=== PATIENT | male | born 1935 | race Caucasian/White ===

== ENCOUNTER 2018-01-02 07:14 | Emergency (ER) | payer MEDICARE, OTHER ==
[2018-01-02 07:37] VITALS: BP 138/100
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
== END 2018-01-02 08:57 | disposition short-term general hospital (02) ==
LOC: UCEAST 07:14
DX: K92.1 Melena (principal); R00.0 Tachycardia, unspecified; Z88.2 Allergy status to sulfonamides; I10 Essential (primary) hypertension; K64.9 Unspecified hemorrhoids; Z87.891 Personal history of nicotine dependence
CPT/HCPCS: 99213; G0463

== ENCOUNTER 2018-01-02 09:18 | Inpatient (IN) | payer MEDICARE, OTHER ==
[2018-01-02] MEDS ORDERED: NS 0.9% 1000 ML* 1,000 ML IV ONE (09:56)
[2018-01-02] MEDS ORDERED: Pantoprazole IV* 40 MG IV ONE (09:56)
[2018-01-02 10:24] LABS: Urine Appearance Clear; Urine Blood Negative (Negative); Urine Color Yellow; Urine Ketones Trace (Negative); Urine Protein Negative (Negative); Urine Urobilinogen Negative (Negative)
--- NOTE | 2018-01-02 10:29 | RAD ---
INDICATION: Diarrhea COMPARISON: None TECHNIQUE: Erect and supine views of the abdomen are submitted. FINDINGS: Bones: There are no acute bony findings. There is spondylitic change with a scoliotic deformity. Soft tissues: The soft tissues appear normal. The psoas margins are sharp. Bowel gas pattern: Normal Calcifications: There calcifications of the iliac vessels. Other: None IMPRESSION: NO ACUTE DIAGNOSTIC FINDINGS.
[2018-01-02 10:48] LABS: ABS Basophils 0.1 10^3/ul (0-0.2); ABS Eosinophils 0 10^3/ul (0-0.6); ABS Lymphocytes 1.1 10^3/ul (1.0-4.8); ABS Monocytes 0.6 10^3/ul (0-0.8); ABS Nucleated RBC 0 10^3/ul; Eosinophil % 0.2 % (0-6); Hematocrit 34 % (42-52); Hemoglobin 11.6 g/dl (14.0-18.0); Lymphocyte % 12.1 % (25-47); Mean Corpuscular HGB Conc 34 g/dl (31-36); Mean Corpuscular Hemoglobin 31 pg (27-31); Mean Corpuscular Volume 91 fL (80-94); Mean Platelet Volume 11 um3 (7.4-10.4); Nucleated Red Blood Cells % 0; Platelet Count 217 10^3/ul (150-450); Red Blood Count 3.72 10^6/ul (4.0-5.4); Red Cell Distribution Width 13 % (10.5-15); White Blood Count 8.7 10^3/ul (3.5-10.8)
[2018-01-02 10:59] LABS: INR 1.06 (0.77-1.02)
[2018-01-02 11:00] LABS: EGFR Non-African American 56.2 (>60)
[2018-01-02] MEDS ORDERED: Ondansetron INJ* 2 MG/ML VIAL IV PRN (14:49)
[2018-01-02] MEDS ORDERED: Acetaminophen TAB* 325 MG PO PRN (14:49)
[2018-01-02] MEDS: NS 0.9% 1000 ML* 1,000 ML IV SCH (16:15)
--- NOTE | 2018-01-02 18:28 | CONS ---
CC: Dr. Herr * CONSULTATION REPORT: DATE OF CONSULTATION: 01/02/18 REQUESTING PHYSICIAN: Celia Alegria NP. PRIMARY CARE PHYSICIAN: Dr. Herr INDICATION: Bloody diarrhea. NARRATIVE: Mr. Espinoza is a very pleasant 82-year-old gentleman who looks much younger than his stated age, with a history of hemorrhoids and hypertension , admitted with bloody diarrhea. The patient states he was diagnosed with the flu approximately 3 to 4 weeks ago. He did take Tamiflu. Approximately a week ago he developed loose stools. He states that he normally develops loose stools a couple of months out of every year. However, this episode seemed to be more intense. He was having between 6 and 8 bowel movements per day until this morning when the stools became bloody. They were bright red blood. He denies any pain. He denies any pushing. No nausea. No vomiting. No fevers or chills. No sick contacts. He does take an aspirin a day; however, he stopped taking that today. Denies any other nonsteroidals. He had never had bloody diarrhea like this before. He does tell me that he had a flexible sigmoidoscopy at least 20 years ago. He has never had a colonoscopy. Flex sig showed severe diverticulosis. Denies any new medications other than the Tamiflu. No unintentional weight loss. He does have intentional weight loss as this was a new year's resolution. No family history of colorectal cancer. PAST MEDICAL HISTORY: Significant for hypertension and hemorrhoids. PAST SURGICAL HISTORY: Include a TURP, inguinal hernia repair. ALLERGIES: SULFA and TETRACYCLINE. SOCIAL HISTORY: He drinks 1 alcoholic beverage per day; however, he has really cut back on this and really says that he does not drink much alcohol at all anymore. He quit smoking many years ago. PHYSICAL EXAMINATION: Temperature is 98.1, blood pressure is 100/61, pulse is 94. General: Well appearing male, who appears younger than stated age. Alert, oriented, pleasant, fluent. HEENT: Mucous membranes are moist without lesions , ulcers, or exudate. Neck is supple. Trachea is midline. Head is normocephalic, atraumatic. Heart: Regular rate and rhythm. Lungs: Clear to auscultation. Abdomen: Positive bowel sounds, soft, nontender, nondistended. No hepatosplenomegaly, masses, rebound, or guarding. Skin is warm and dry. LABORATORY DATA: Of note, white count is 8.7, hemoglobin is 11.6, and platelets are 217. BUN 22, creatinine 1.23. CRP is 11.79. ASSESSMENT AND PLAN: This is a pleasant 82-year-old gentleman who presents with diarrhea for the past week to 10 days that turned bloody this morning. It is painless. Possible etiologies would include a diverticular bleed, could be irritable bowel syndrome, especially post infectious from his flu, with hemorrhoids or diverticulosis. I doubt ischemic colitis without pain, I doubt IBD, such as Crohn's or ulcerative colitis. He could have another infection. He was already tested for C. diff, this is negative, and his lactoferrin is negative. He did have abdominal x-ray that was within normal limits. At this point, I would like to perform a colonoscopy. He is having 6 to 8 loose stools per day, I do not think we need to perform a full prep, but I would like to give him 1 L of GoLYTELY tonight and another liter tomorrow and plan for his colonoscopy tomorrow. [id number]/[facility] #: [id number] MTDD
[2018-01-02 19:54] LABS: Hematocrit 30 % (42-52); Hemoglobin 10.2 g/dl (14.0-18.0)
[2018-01-02] MEDS: Pantoprazole IV* 40 MG IV SCH (21:10)
[2018-01-02] MEDS: PEG 3000 GI LAVAGE* 1 GALLON PO SCH (21:44)
--- NOTE | 2018-01-02 22:55 | HP ---
CC: Dr. Herr * [facility] MEDICINE HISTORY AND PHYSICAL: DATE OF ADMISSION: 01/02/18 PRIMARY CARE PHYSICIAN: Dr. Herr. ATTENDING PHYSICIAN: Dr. Aicha Garcia * (dictation provided by Celia Alegria NP ). CHIEF COMPLAINT: Bloody diarrhea. HISTORY OF PRESENT ILLNESS: Mr. Espinoza is an 82-year-old male with a past medical history of diverticulosis, hypertension, hyperlipidemia, and CKD stage 3 , who presented to the hospital today with concern for bloody diarrhea. Mr. Espinoza states that he was treated for the flu in mid December, for that he completed a course of Tamiflu. His diarrhea started on about 12/26/17 and has been increasing in frequency and amount since then. He has a history of diverticulosis diagnosed probably 15 years ago on a flexible sigmoidoscopy. Since then, he states he has been having diarrhea intermittently, but never associated with bleeding. However, last night, he noted that there was a significant amount of blood in the toilet after he had a bowel movement. Therefore, he came to the emergency room for evaluation. He denies any lightheadedness or dizziness. He further denies any palpitations, chest pain, shortness of breath, nausea or vomiting. He has no abdominal pain except for mild intermittent cramping associated with diarrhea. He does endorse a 20- pound weight loss, but states it was intentional. In the emergency room, Mr. Espinoza had hemoglobin, which was 11.6. Last hemoglobin on 06/02/16 was 14.1. The remainder of his labs were unremarkable. His C. difficile testing was negative. His stool guaiac was positive. He had an abdominal x-ray that showed no acute abnormality. His vital signs are stable. He is not tachycardic or hypotensive. PAST MEDICAL HISTORY: 1. Diverticulosis diagnosed about 15 years ago on flexible sigmoidoscopy. 2. Hypertension. 3. Hyperlipidemia. 4. Dupuytren's contractures. 5. CKD stage 3. PAST SURGICAL HISTORY: 1. Dupuytren's contracture release 2016. 2. TURP 2014. 3. Hernia repair in the . MEDICATIONS: Are: 1. Vitamin C 500 mg p.o. daily. 2. Vitamin B complex 1 tab p.o. daily. 3. Multivitamin with mineral 1 tab p.o. daily. 4. Cholecalciferol 1000 units p.o. daily. 5. Aspirin 81 mg p.o. daily. 6. Losartan hydrochlorothiazide 50/12.5 half a tab p.o. daily. 7. Atorvastatin 40 mg p.o. daily. ALLERGIES: To SULFA and TETRACYCLINE. FAMILY HISTORY: The patient reports his mom had CVA and at age 74. Father 's history is unknown. SOCIAL HISTORY: The patient is a former smoker. He drinks about 1 drink per day. No report of drug use. He is a retired long. He lives with his , Ashly, who would be his healthcare proxy. REVIEW OF SYSTEMS: A 14-point review of systems was completed with Mr. Espinoza and all those not mentioned above were negative. PHYSICAL EXAMINATION GENERAL: Mr. Espinoza is lying in the bed with his at the bedside. He is in no acute distress. VITAL SIGNS: Temperature 98.3, pulse rate 76, respiratory rate 16, O2 saturation 97% on room air, blood pressure 112/55. LUNGS: Clear to auscultation bilaterally. No accessory muscle use and good aeration. HEART: S1, S2. There is a faint systolic murmur near the sternal border. Rhythm is regular. ABDOMEN: The abdomen is soft. The patient has no tenderness on palpation. Bowel sounds are positive. EXTREMITIES: No cyanosis or edema. NEUROLOGIC: He is alert. He is oriented x3. He moves his lower extremities equally. There is no facial asymmetry or focal weakness. Extraocular movements are intact. SKIN: Intact. DIAGNOSTIC STUDIES/LAB DATA: WBC 8.7, hemoglobin 11.6, hematocrit 34, platelet count 217. INR 1.06. Sodium 136, potassium 3.6, chloride 106, serum bicarbonate 23, BUN 22, creatinine 1.23, glucose 130. CRP 11.79. ASSESSMENT: Mr. Espinoza is an 82-year-old male with a past medical history of diverticulosis and chronic intermittent diarrhea as well as hypertension, hyperlipidemia, and chronic kidney disease stage 3, who presented to the hospital today with concern for bloody diarrhea. Our plans are for observation in the hospital for the followin. Bloody diarrhea: This may be secondary to his longstanding history of diverticulosis. He is slightly anemic today with a hemoglobin of 11. We will be repeating hemoglobin later this evening and in the morning. We will be providing Protonix b.i.d. He will have IV fluids. He will be seen in consultation by Dr. Garcia from Gastroenterology regarding possible plan for colonoscopy inpatient. He will have a clear diet. 2. Hypertension. Plan to hold losartan and hydrochlorothiazide in the setting of acute bleed. 3. Hyperlipidemia. Plan to hold atorvastatin in the event of acute illness. 4. History of chronic kidney disease stage 3, at baseline. Monitor. 5. Code status. Full code. 6. DVT prophylaxis with SCDs. TIME SPENT: Approximately 60 minutes were spent on admission of this patient; more than half time spent with the patient at the bedside reviewing the events leading up to this hospitalization, performing the physical examination, reviewing my plan of care. CELIA ALEGRIA, JOHN [id number]/[facility] #: [id number] YOLANDA
[2018-01-02 23:41] LABS: Hematocrit 26 % (42-52); Hemoglobin 8.8 g/dl (14.0-18.0)
[2018-01-03] MEDS: NS 0.9% 1000 ML* 1,000 ML IV SCH ×2 (02:28→13:05)
[2018-01-03 06:25] LABS: Hematocrit 24 % (42-52); Hemoglobin 8.3 g/dl (14.0-18.0)
[2018-01-03] MEDS: Pantoprazole IV* 40 MG IV SCH (08:19)
[2018-01-03] MEDS: PEG 3000 GI LAVAGE* 1 GALLON PO SCH (08:25)
--- NOTE | 2018-01-03 10:26 | PN ---
Subjective Date of Service: 01/03/18 Interval History: Mr. Espinoza is seen immediately after his colonoscopy. He reports feeling ok though a little "out of it." He denies abdominal pain, chest pain, or SOB. Endoscopy reports that he had significant bleeding, with concern for bleeding higher up and therefore will return for EGD. Objective Active Medications: Acetaminophen (Tylenol Tab*) 650 mg PO Q6H PRN Sodium Chloride (Ns 0.9% 1000 Ml*) 1,000 mls @ 100 mls/hr IV PER RATE TORRI Ondansetron HCl (Zofran Inj*) 4 mg IV Q6H PRN Pantoprazole Sodium (Protonix Iv*) 40 mg IV BID TORRI Vital Signs: Temp Pulse Resp BP Pulse Ox 97.9 F 69 18 100/51 96 01/03/18 08:12 01/03/18 08:12 01/03/18 08:12 01/03/18 08:12 01/03/18 08:12 Oxygen Devices in Use Now: None Appearance: Male lying in bed in NAD Eyes: No Scleral Icterus Ears/Nose/Mouth/Throat: Mucous Membranes Moist Neck: Trachea Midline Respiratory: Symmetrical Chest Expansion and Respiratory Effort, Clear to Auscultation Cardiovascular: NL Sounds; No Murmurs; No JVD, No Edema Abdominal: NL Sounds; No Tenderness; No Distention Lymphatic: No Cervical Adenopathy Extremities: No Edema Skin: No Rash or Ulcers Neurological: Alert and Oriented x 3, NL Muscle Strength and Tone Nutrition: Taking PO's Result Diagrams: 01/03/18 13:49 01/02/18 10:24 Assess/Plan/Problems-Billing Assessment: Mr. Espinoza is an 82 yo M with a PMH of diverticulosis who was admitted on 01/02 with bright red blood per rectum and suspected lower GI bleed. - Patient Problems (1) Lower GI bleed Comment: - Hgb fell to 7.9 and patient is reported to still have significant bleeding. - Patient not tachycardic, SBP 100 off home meds. - Plan for 2 units PRBC now. - Appreciate GI consult, plan for colonoscopy today. - Hold asa. (2) Hypertension Comment: - SBP 100s. - Continue to hold losartan/hctz. (3) Hyperlipidemia Comment: - Hold atorvastatin while on clear liquid diet. (4) DVT prophylaxis Comment: - SCDs only. (5) Full code status Comment: Status and Disposition: Switch to inpatient.
[2018-01-03] MEDS ORDERED: Midazolam* 1 MG/ML 10 ML VIAL (10 MG) ONE ×2 (11:27→16:05)
[2018-01-03] MEDS ORDERED: fentaNYL* 50 MCG/ML 2 ML VIAL (100 MCG VIAL) ONE ×2 (11:27→16:05)
[2018-01-03 14:03] LABS: Hematocrit 23 % (42-52); Hemoglobin 7.9 g/dl (14.0-18.0)
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
[2018-01-03] MEDS: Pantoprazole IV* 80 MG in NS 0.9% 250 ML* 250 ML IVPB SCH (18:38)
[2018-01-04] MEDS: Pantoprazole IV* 80 MG in NS 0.9% 250 ML* 250 ML IVPB SCH ×2 (06:15→09:37)
[2018-01-04 06:33] LABS: Hematocrit 28 % (42-52); Hemoglobin 9.7 g/dl (14.0-18.0)
--- NOTE | 2018-01-04 08:47 | PN ---
Subjective Date of Service: 01/04/18 Interval History: Mr. Espinoza reports feeling quite well this morning and is eager for discharge. Objective Active Medications: Acetaminophen (Tylenol Tab*) 650 mg PO Q6H PRN Pantoprazole Sodium 80 mg/ (Sodium Chloride) 250 mls @ 25 mls/hr IVPB Q10H TORRI Pantoprazole Sodium 80 mg/ (Sodium Chloride) 250 mls @ 25 mls/hr IVPB Q10H TORRI Ondansetron HCl (Zofran Inj*) 4 mg IV Q6H PRN Vital Signs: Temp Pulse Resp BP Pulse Ox 98.3 F 62 15 117/57 95 01/04/18 07:32 01/04/18 07:32 01/04/18 08:00 01/04/18 07:32 01/04/18 07:32 Oxygen Devices in Use Now: None Appearance: Male lying in bed in NAD Eyes: No Scleral Icterus Ears/Nose/Mouth/Throat: NL Teeth, Lips, Gums Neck: NL Appearance and Movements; NL JVP Respiratory: Symmetrical Chest Expansion and Respiratory Effort, Clear to Auscultation Cardiovascular: NL Sounds; No Murmurs; No JVD, No Edema Abdominal: NL Sounds; No Tenderness; No Distention Lymphatic: No Cervical Adenopathy Extremities: No Edema Skin: No Rash or Ulcers Neurological: Alert and Oriented x 3, NL Muscle Strength and Tone Nutrition: Taking PO's Result Diagrams: 01/04/18 05:41 01/02/18 10:24 Additional Lab and Data: . Assess/Plan/Problems-Billing Assessment: Mr. Espinoza is an 82 yo M with a PMH of diverticulosis who was admitted on 01/02 with bright red blood per rectum and GI bleed. - Patient Problems (1) Lower GI bleed Comment: - Hgb responded appropriately to 2 units PRBC, now 9.7. - Upper and lower endoscopy found no site of bleeding, only gastritis. Likely secondary to aspirin and ibuprofen. - Hold asa and ibuprofen. - Start omeprazole BID. - Follow up GI in 4-6 weeks. (2) Hypertension Comment: - SBP 100s. - Resume losartan/hctz. (3) Hyperlipidemia Comment: - Hold atorvastatin while on clear liquid diet. (4) DVT prophylaxis Comment: - SCDs only. (5) Full code status Comment: Status and Disposition: Inpatient. Discharge to home.
--- NOTE | 2018-01-04 11:22 | PRO ---
DATE: 01/03/18 - ROOM #420 REFERRING PHYSICIAN: Tanmay Herr DO* PROCEDURE: Colonoscopy and ileoscopy INDICATION: This is an 82-year-old man, began passing blood profusely yesterday morning. He says that about 10 days ago he began having a diarrhea episode that was not necessarily different from previous bouts of this, that have extended over 20 or more years. Ten days ago he did not have any nausea, vomiting, or fever, but just repetitive loose stools. It became a little more violent 4 days ago. He did not, however, see blood until this morning. He has never had bleeding before. When diarrhea became a major issue, 18 or 20 years ago, while living in [place], [place], he had a sigmoidoscopy and barium enema that showed extensive diverticulosis. He moved to [place] in 2015. He has never had a colonoscopy. Last night he was given half prep. His hemoglobin fell from 11.6 to 8.2. His BUN was 23, unchanged from a single value about a year ago. ENDOSCOPIST: Dr. Stewart. MEDICATIONS: Midazolam 7, fentanyl 50. FINDINGS: He is a healthy-appearing older man, in no distress. His abdomen is soft and nontender. Rectal is normal. Initial views showed extensive bloody secretions. They are dark red and granular. The scope advances into the sigmoid where there is 3 to 4 + diverticulosis and a little of scarring and restriction, but the scope passes easily and there are still diverticula in ascending and distal transverse. The cecum was reached. There were bloody secretions throughout. There was no fresh bleeding. A single 5 to 6 mm polyp was seen in the descending and left given the acute illness now. Entering the ileum, at about 25 cm there were small spatters of bloody appearing secretions. Coming back from the upper most insertion (30 cm of ileum ) no acute bleeding was seen. Rectal retroflexion was normal. IMPRESSION: 1. Left colonic diverticulosis - extensive, with no acute bleeding seen at this moment. 2. Gastrointestinal bleed - question of an upper source is raised and upper endoscopy will be arranged later in the day. [id number]/[facility] #: [id number] MTDD
[2018-01-04 12:26] VITALS: BP 109/61
--- NOTE | 2018-01-04 13:59 | PRO ---
DATE: 01/03/18 - ROOM #420 REFERRING PHYSICIAN: Tanmay Herr DO * PROCEDURE: Upper gastrointestinal endoscopy through third portion of duodenum INDICATION: An 82-year-old man who was admitted with a GI bleed. It was profuse and his hemoglobin fell from the mid 11's on arrival to 8.2. Colonoscopy showed lots of blood throughout the entire colon and there seemed to be strands of blood particles in the ileum up as far as the exam could proceed to 25 cm. He does take baby aspirin for many years. He has not had overt peptic complaints. ENDOSCOPIST: Dr. Castro. MEDICATIONS: Midazolam 6.5, fentanyl 50. FINDINGS: This is a healthy-appearing older man, appearing younger than stated age. His abdomen is soft and nontender. EGD: Esophagus - easily entered. The mucosa is normal near the upper, mid and lower esophagus with EG junction at 37 and then a minimal ring and a medium sized hiatal hernia. There are no active erosions and no Plata's change. Stomach - normal mucosa in the cardia, fundus and proximal body. The distal body is also normal. In the antrum, especially in the prepyloric area, there is a considerable amount of erythema and small erosions, but no ulcers. The area did open up completely and no ulcer was seen. The pylorus was patent. Duodenum - the bulb had considerable Arcadio's hypertrophy, but no erosions or exudate. There is erythema on the Arcadio's glands, but again no erosions. The second through fourth portions of the duodenum were normal. IMPRESSION: 1. Arcadio's gland hypertrophy. 2. Medium sized hiatal hernia. 3. Mild antral gastritis consistent with aspirin effect. 4. Gastrointestinal bleed - this exam points back towards the diverticulosis as the source. [id number]/[facility] #: [id number] [facility]
[2018-01-04] MEDS ORDERED: Pantoprazole IV* 80 MG in NS 0.9% 250 ML* 250 ML IVPB SCH (16:00)
--- NOTE | 2018-01-04 22:27 | DS ---
CC: Dr. Herr * [facility] MEDICINE DISCHARGE SUMMARY: DATE OF ADMISSION: 01/02/18 DATE OF DISCHARGE: 01/04/18 PRIMARY CARE PROVIDER: Dr. Herr. ATTENDING PHYSICIAN: Dr. Paul Ojeda * (dictation provided by Celia Alegria NP). PRIMARY DIAGNOSES: 1. Gastrointestinal bleed, unknown source, but with known gastritis. 2. Anemia. SECONDARY DIAGNOSES: 1. Diverticulosis. 2. Hypertension. 3. Hyperlipidemia. 4. Dupuytren's contractures. 5. Chronic kidney disease stage 3. MEDICATIONS AT THE TIME OF DISCHARGE: The patient has been instructed to hold aspirin and ibuprofen. Remainder of the medication list includes: 1. Omeprazole 20 mg p.o. b.i.d. (new medication). 2. Vitamin C 500 mg p.o. daily. 3. Vitamin B complex 1 tab p.o. daily. 4. Multivitamin mineral 1 tab p.o. daily. 5. Cholecalciferol 1000 units p.o. daily. 6. Losartan/hydrochlorothiazide 50/12.5 half a tab p.o. daily. 7. Atorvastatin 40 mg p.o. daily. HOSPITAL COURSE: Mr. Espinoza is an 82-year-old male with a past medical history of known diverticulosis, hypertension and hyperlipidemia, who presented to the hospital on 01/02/18 with concern for bloody diarrhea. Please see the dictated H and P from myself for complete details. In brief, the patient states that he had had some intermittent diarrhea for years, but never had any black tarry stools or bloody stools; however, the night prior to admission, he had a significant amount of blood with bowel movement and therefore presented to the ED the following day. In the emergency room, his hemoglobin was 11.6, which was slightly lower than baseline. His stool guaiac was positive. He had an abdominal x-ray, which showed no acute abnormality. His vitals were stable. He was not tachycardic or hypotensive. Mr. Espinoza went on to have a lower endoscopy after consultation with Dr. Garcia from [facility]. The colonoscopy itself did not find a source of bleeding, although there was a large amount of dried blood throughout the colon. Therefore, the patient went on for an upper endoscopy. EGD showed that there was gastritis, but again no clear source of bleeding was found. At this point, it is suspected that the patient has a component of gastritis secondary to aspirin and ibuprofen use. He may have another source of bleeding, but we not were identified on endoscopy. The patient's hemoglobin fell to a bruno of 7.9 during the admission and he did receive 2 units of packed red blood cells last evening. His hemoglobin this morning is 9.7. Again, he remains asymptomatic. Mr. Espinoza is medically stable for discharge to home to follow up with Dr. Herr and then to follow up with [facility] in the next 4 to 6 weeks for reevaluation. He will continue on omeprazole b.i.d. and has been advised to avoid aspirin and ibuprofen. DISPOSITION: To home. DIET: Low fat, low salt. ACTIVITY: As tolerated. FOLLOWUP PLANS: 1. Please follow up with Dr. Herr in the next 1 to 2 weeks. 2. Please follow up with [facility] recommending Dr. Castro as he perform the endoscopy procedures in the next 4 to 6 weeks. TIME SPENT: Approximately 60 minutes was spent in the discharge of this patient. CELIA ALEGRIA NP [id number]/[facility] #: [id number] YOLANDA
== END 2018-01-04 13:00 | disposition home or self-care (01) | DRG 379 ==
LOC: ED 09:18 → MED 14:19 → OBSVTOIN 16:22 → INTOOBSV 16:22 → OBSVTOIN 01-03 16:22
PROVIDERS: ADMIT Internal Medicine; ATTEND Internal Medicine
PROC: 30233N1 Transfusion of Nonautologous Red Blood Cells into Peripheral Vein, Percutaneous Approach (ICD-10-PCS; principal; 2018-01-03)
PROC: 0DJ08ZZ Inspection of Upper Intestinal Tract, Via Natural or Artificial Opening Endoscopic (ICD-10-PCS; 2018-01-03)
PROC: 0DJD8ZZ Inspection of Lower Intestinal Tract, Via Natural or Artificial Opening Endoscopic (ICD-10-PCS; 2018-01-03)
DX: K92.2 Gastrointestinal hemorrhage, unspecified (principal); D63.1 Anemia in chronic kidney disease; N18.3 Chronic kidney disease, stage 3 (moderate); K29.70 Gastritis, unspecified, without bleeding; E78.5 Hyperlipidemia, unspecified; F41.9 Anxiety disorder, unspecified; H26.9 Unspecified cataract; K58.9 Irritable bowel syndrome, unspecified; M19.012 Primary osteoarthritis, left shoulder; M19.011 Primary osteoarthritis, right shoulder; I12.9 Hypertensive chronic kidney disease with stage 1 through stage 4 chronic kidney disease, or unspecified chronic kidney disease; K57.90 Diverticulosis of intestine, part unspecified, without perforation or abscess without bleeding; M72.0 Palmar fascial fibromatosis [Dupuytren]; K64.9 Unspecified hemorrhoids; K31.89 Other diseases of stomach and duodenum; K44.9 Diaphragmatic hernia without obstruction or gangrene; K63.5 Polyp of colon; K57.30 Diverticulosis of large intestine without perforation or abscess without bleeding; T39.015A Adverse effect of aspirin, initial encounter; T39.315A Adverse effect of propionic acid derivatives, initial encounter; Z82.49 Family history of ischemic heart disease and other diseases of the circulatory system; Z82.3 Family history of stroke; Z72.89 Other problems related to lifestyle; Z87.891 Personal history of nicotine dependence; Z88.2 Allergy status to sulfonamides; Z88.1 Allergy status to other antibiotic agents
CPT/HCPCS: 36415; 74019; 80053; 81003; 82270; 82550; 83630; 83690; 83880; 85014; 85018; 85025; 85610; 85730; 86140; 86850; 86900; 86901; 86922; 87045; 87046; 87077; 87493; 87899; 99156; 99213; 99284; A9270-GY; G0463; J2250; J3010; P9040

== ENCOUNTER 2019-06-02 08:34 | Emergency (ER) | payer MEDICARE, OTHER ==
[2019-06-02 08:54] VITALS: BP 150/76
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
[2019-06-02 14:21] LABS: ABS Eosinophils 0.1 10^3/ul (0-0.6); ABS Lymphocytes 1.1 10^3/ul (1.0-4.8); ABS Monocytes 0.5 10^3/ul (0-0.8); ABS Neutrophils 4.2 10^3/ul (1.5-7.7); Eosinophil % 1.8 %; Hematocrit 40 % (42-52); Hemoglobin 13.5 g/dL (14.0-18.0); Lymphocyte % 18.4 %; Mean Corpuscular HGB Conc 34 g/dL (31-36); Mean Corpuscular Hemoglobin 31 pg (27-31); Mean Corpuscular Volume 93 fL (80-94); Mean Platelet Volume 10.2 fL (7.4-10.4); Nucleated Red Blood Cells % 0.1; Platelet Count 164 10^3/uL (150-450); Red Blood Count 4.29 10^6 /uL (4.18-5.48); Red Cell Distribution Width 14 % (10-15); White Blood Count 5.9 10^3/uL (3.5-10.8)
[2019-06-02 14:28] LABS: Albumin 4.6 g/dL (3.2-5.2); Calcium 9.7 mg/dL (8.6-10.3); Potassium 4.5 mmol/L (3.5-5.0); Total Bilirubin 0.8 mg/dL (0.2-1.0)
[2019-06-02 14:34] LABS: Albumin/Globulin Ratio 1.7 (1-3); BUN/Creatinine Ratio 11.2 (8-20); EGFR African American 61.3 (>60); EGFR Non-African American 50.7 (>60); Globulin 2.7 g/dL (2-4); Total Protein 7.3 g/dL (6.4-8.9)
== END 2019-06-02 10:32 | disposition home or self-care (01) ==
LOC: UCEAST 08:34
DX: R55 Syncope and collapse (principal); S29.8XXA Other specified injuries of thorax, initial encounter; W18.30XA Fall on same level, unspecified, initial encounter; Y92.019 Unspecified place in single-family (private) house as the place of occurrence of the external cause; Z88.2 Allergy status to sulfonamides; Z87.891 Personal history of nicotine dependence
CPT/HCPCS: 36415; 80053; 85025; 93005; 99211; G0463